=== PATIENT | female | born 1980 | race Caucasian/White ===

== ENCOUNTER 2018-04-06 19:51 | Emergency (ER) | payer MEDICAID ==
[~2018-04-06] VITALS: Ht 167.6 cm; Wt 83.0 kg
[2018-04-06] MEDS ORDERED: CYCL10TA9 PO (20:23)
[2018-04-06] MEDS ORDERED: OXYC-133 PO (20:23)
[2018-04-06] MEDS ORDERED: METH10TA2 PO (20:23)
--- NOTE | 2018-04-06 20:41 | NUR ---
Dr. Roland MUNIZ MD at bedside for MSE.
--- NOTE | 2018-04-06 21:09 | NUR ---
Ultrasound at bedside.
[2018-04-06 21:25] LABS: BASOPHILS # (AUTO) 0.2 K/uL (0.0-8.0); BASOPHILS % (AUTO) 1.5 % (0.0-2.0); EOSINOPHILS # (AUTO) 0.1 K/uL (0.0-0.7); EOSINOPHILS % (AUTO) 0.9 % (0.0-7.0); HEMATOCRIT 35.8 % (31.2-41.9); HEMOGLOBIN 12.6 g/dL (10.9-14.3); LYMPHOCYTES % (AUTO) 27.1 % (20.5-51.5); MEAN CORPUSCULAR HEMOGLOBIN 39.3 uug (24.7-32.8); MEAN CORPUSCULAR HGB CONC 35 g/dL (32.3-35.6); MEAN CORPUSCULAR VOLUME 111.9 fL (75.5-95.3); MONOCYTES # (AUTO) 1.1 K/uL (2.0-10.0); MONOCYTES % (AUTO) 9.9 % (0.0-11.0); NEUTROPHILS # (AUTO) 6.8 K/uL (1.8-8.9); NEUTROPHILS % (AUTO) 60.6 % (38.5-71.5); PLATELET COUNT (AUTO) 258 K/uL (179-408); WHITE BLOOD COUNT (AUTO) 11.2 K/uL (3.8-11.8)
[2018-04-06 21:30] LABS: CARBON DIOXIDE 26 mmol/L (21-32); CHLORIDE 99 mmol/L (98-107); CREATININE 0.8 mg/dL (0.6-1.3); GLUCOSE 118 mg/dL (74-106); POTASSIUM 3.2 mmol/L (3.5-5.1); UREA NITROGEN, BLOOD 9 mg/dL (7-18)
[2018-04-06 21:40] LABS: ALANINE AMINOTRANSFERASE 84 U/L (14-59); ALKALINE PHOSPHATASE 506 U/L (50-136); ASPARTATE AMINOTRANSFERASE 165 U/L (15-37); BILIRUBIN,DIRECT 2.5 mg/dL (0.0-0.2); BILIRUBIN,TOTAL 3.5 mg/dL (0.2-1.0); LIPASE 218 U/L (73-393); TOTAL PROTEIN, SERUM 7.3 g/dL (6.4-8.2)
[2018-04-06 21:48] LABS: *BILIRUBIN,URIN 1+ (NEGATIVE); *BLOOD, URINE Trace-intact (NEGATIVE); *COLOR,URINE DARK YELLOW (YELLOW); *KETONES,URINE NEGATIVE (NEGATIVE); *PROTEIN,URINE NEGATIVE (NEGATIVE); LEUKOCYTE ESTERASE ,URINE TRACE (NEGATIVE); NITRITE, URINE NEGATIVE (NEGATIVE); PH,URINE 6.5 (5.0-8.0); UGLUCOSE NEGATIVE (NEGATIVE)
[2018-04-06 21:58] LABS: BAND % (MANUAL) 11 % (0-10); EOSINOPHILS % (MANUAL) 1 % (0-8); LYMPHOCYTES % (MANUAL) 26 % (20-40); MONOCYTES % (MANUAL) 8 % (2-10); NEUTROPHILS % (MANUAL) 54 % (42-75)
--- NOTE | 2018-04-06 21:58 | NUR ---
Pt went down to radiology dept for CT scan.
[2018-04-06 22:04] LABS: *CLARITY,URINE HAZY (CLEAR)
[2018-04-06 22:05] LABS: BACTERIA,URINE FEW /HPF (NONE SEEN); SQUAMOUS EPITHELIAL CELL,UR MODERATE /HPF (NONE SEEN)
--- NOTE | 2018-04-06 22:09 | NUR ---
Pt back from CT scan. NAD noted.
--- NOTE | 2018-04-06 23:05 | NUR ---
Called [facility] for panel call.
--- NOTE | 2018-04-06 23:12 | NUR ---
Pt insurance is [facility]. Pending transfer.
--- NOTE | 2018-04-06 23:24 | NUR ---
Adilene Lyon to call back in 15 min.
--- NOTE | 2018-04-06 23:50 | NUR ---
Spoke with Franci from [facility] regarding pt transfered. Franci requested face sheet + clinicals to be faxed at [phone].
--- NOTE | 2018-04-07 00:41 | NUR ---
Pt states she wants to be discharged home. notified.
--- NOTE | 2018-04-07 00:46 | NUR ---
Notified [facility] and let them know pt will be discharged.
--- NOTE | 2018-04-07 00:55 | NUR ---
IV removed. Catheter intact and site benign. Pressure and 4x4 gauze applied to site. No bleeding noted.
--- NOTE | 2018-04-07 00:55 | NUR ---
Patient discharged to home in stable conditon. Written and verbal after care instructions given. Patient verbalizes understanding of instructions.
[2018-04-07 00:56] VITALS: BP 126/84
== END 2018-04-07 00:56 | disposition home or self-care (01) ==
LOC: ER 19:55
DX: K70.10 Alcoholic hepatitis without ascites (principal); F17.200 Nicotine dependence, unspecified, uncomplicated
CPT/HCPCS: 36415; 70030-TC; 71045; 83605; 83690; 84703; 85025; 85730; 87040; 87086; 93005; A4663